=== PATIENT | male | born 1995 ===

== ENCOUNTER 2018-11-24 03:15 | Emergency (ER) | payer SELFPAY ==
[2018-11-24] MEDS ORDERED: Propofol 10 mg/ml Inj (20 ML) ONE (04:43)
[2018-11-24] MEDS ORDERED: Propofol 10 mg/ml Inj (20 ML) IV ONE (05:00)
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
[2018-11-24 05:44] VITALS: RESP 18
[2018-11-24 06:33] VITALS: BP 138/85; PULSE 97; TEMP 98.3; O2SAT 98
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
--- NOTE | 2018-11-24 11:00 | RAD ---
Date of service: 11/24/2018 PROCEDURE: Radiographs of the Left Shoulder HISTORY: post reduction COMPARISON: Pre reduction radiographs 11/14/2018 FINDINGS: BONES: Normal. No fracture. JOINTS: Normal. Glenohumeral and acromioclavicular joints preserved. No osteoarthritis. SOFT TISSUES: Normal. OTHER FINDINGS: None. IMPRESSION: Satisfactory reduction of previously identified dislocation. No visible fractures.
== END 2018-11-24 06:30 | disposition home or self-care (01) ==
LOC: C.ER 03:15
DX: S43.005A Unspecified dislocation of left shoulder joint, initial encounter (principal); Y04.0XXA Assault by unarmed brawl or fight, initial encounter
CPT/HCPCS: 23650; 73030; 99285; J2704